=== PATIENT | female | born 1935 | race Caucasian/White ===

== ENCOUNTER 2021-02-17 11:00 | Emergency (ER) | payer MEDICARE, SELFPAY ==
[2020-08-23 14:14] VITALS: BMI 21.2
[2021-02-17 11:02] VITALS: BP 145/89; PULSE 107; RESP 17; TEMP 36.6; O2SAT 98; BMI 46.1
--- NOTE | 2021-02-17 11:31 | ED.VIS.GEN ---
History of Present Illness Chief Complaint: Other, Pain/Inj Detail of Chief Complaint: rectal/anal pain Informant: Patient, Family Onset: Weeks - 1 Context: Gradual Onset Timing: Waxes and wanes Quality: sore/painful Location: anus/rectum Current Severity: Moderate Maximum Severity: Severe Worsened by: sitting Relieved by: lying off buttocks Associated Symptoms: minor bleeding. recent constipation. Narrative: Patient has had some anal and rectal discomforts along with an egg-sized swollen area for about a week, yesterday became much worse and bigger and she was seen at the [facility] ER, told she had rectal prolapse which was reduced, and as result she felt much better. Today it recurred and she again is having a lot of local pain in her anal area. She denies any abdominal pain, fevers, nausea, vomiting. She has been constipated recently, and has been bearing down and trying to push out stool around the time this started. She had a history of colon cancer and a partial colectomy, she never had a colostomy. That was done by a surgeon in [place], they suspect they need to follow-up with the surgeon to have this corrected and came here so that they could get plugged into a local surgeon because she does not want to go back to [place]. - Past Medical History (1) History of colon cancer Status: Chronic (2) History of left breast cancer Status: Chronic Past Medical History - Allergies and Home Meds Allergies/Adverse Reactions: Allergies tramadol Allergy (Verified 02/17/21 11:03) Angioedema Primary Care Physician: Chelsea Peña MD [STAFF PHYSICIAN] - (call for appt) Surgical History: colectomy - partial Smoking Status: Never smoker Review of Systems General: Denies: Chills, Fever, Sweats Eyes: Denies: Visual changes - bilaterally, Diplopia ENT: Denies: Rhinorrhea, Sore throat Cardiovascular: Denies: Chest pain, Palpitations Respiratory: Denies: Dyspnea, Cough, Dyspnea on exertion Gastrointestinal: Reports: Hematochezia - along w/ rectal pain. Denies: Abdominal pain, Nausea, Vomiting, Diarrhea, Melena Genitourinary: Denies: Dysuria, Hematuria, Frequency Musculoskeletal: Denies: Back pain, Extremity Pain Skin: Denies: Rash, Wounds Neurological: Denies: Headache, Weakness, Numbness Physical Exam Vital Signs/Narrative: Vital Signs Temp Pulse Resp BP Pulse Ox 02/17/21 11:02 98 F 107 H 17 145/89 H 98 Inital Vital Signs reviewed: Yes General: Well nourished, Well developed, No Acute Distress Head: Normocephalic, Atraumatic Respiratory: No distress Abdomen: Soft, Nontender, Nondistended, Normal bowel sounds Rectal: Tenderness - Tender prolapsed rectal mucosa present, mildly swollen, no evidence of an abscess, focal hemorrhoid, or other focal painful lesion. No uterine or bladder prolapse seen on gross exam, no /speculum exam was performed. Extremities: Nontender, No edema Skin: Normal color, No rash Neurological: Alert, Oriented x3, Cranial nerves II-XII grossly intact, Normal Strength, Normal Sensation, Normal Gait Psychological: Normal affect, Normal Mood Diagnostic/Tx/Re-eval - Medical Decision Making Patient's rectal mucosa was coated in sugar for half an hour, this made it easier to reduce her rectal prolapse with less discomfort. She felt much better on reevaluation. She was referred to the general surgeon on-call Dr. Peña for definitive treatment. She was also advised to start a stool softener so that she limits Valsalva maneuvers. Procedures Procedure(s): Suction rectal prolapse. See above. Uncomplicated, tolerated well with no pain. ED Disposition - Plan for ED Patient: Disposition: Home or Assisted Living Diagnosis: Rectal mucosa prolapse Instructions: ED Rectal Prolapse Referrals: Chelsea Peña MD [STAFF PHYSICIAN] - (call for appt)
== END 2021-02-17 13:09 | disposition home or self-care (01) ==
LOC: ED 11:47
PROVIDERS: Emergency Provider Emergency Medicine; PCP Family Medicine
DX: K62.3 Rectal prolapse (principal); Z85.038 Personal history of other malignant neoplasm of large intestine; Z85.3 Personal history of malignant neoplasm of breast
CPT/HCPCS: 99281; 99282